=== PATIENT | male | born 1975 | race American Indian/Alaskan Native ===

== ENCOUNTER 2021-06-21 20:33 | Emergency (ER) | payer BC ==
[2021-06-21 21:50] VITALS: BP 133/85
[2021-06-22 00:09] LABS: Bacteria,Urine 1+ /HPF (Negative); Bilirubin,Urine NEG (Negative); Blood,Urine NEG (Negative); Color,Urine Yellow (Yellow); Protein,Urine <15 mg/dL mg/dL (Negative); Urobilinogen,Urine < 2.0 mg/dL (<2.0)
[2021-06-22] MEDS ORDERED: LIDOCAINE-MPF (1%) 10 MG/1 ML VIAL 5 ML INFILTRATI ONE (03:14)
[2021-06-22] MEDS ORDERED: KETOROLAC 30 MG/1 ML INJ IM ONE (03:14)
[2021-06-22 04:34] LABS: Basophils % (Auto) 0.3 % (0.0-1.8); Eosinophils # (Auto) 0.2 K/mm3 (0.0-0.4); Eosinophils % (Auto) 1.9 % (0.0-4.3); Hematocrit 40.4 % (35.5-45.6); Lymphocytes # (Auto) 1.5 K/mm3 (1.2-5.4); Lymphocytes % (Auto) 15.6 % (13.4-35.0); Mean Corpuscular HGB Conc 35 % (32-34); Mean Corpuscular Volume 93 fl (84-94); Monocytes # (Auto) 1.1 K/mm3 (0.0-0.8); Monocytes % (Auto) 11.3 % (0.0-7.3); Platelet Count 242 K/mm3 (140-440); Red Blood Count 4.34 M/mm3 (3.65-5.03); Red Cell Distribution Width 13.2 % (13.2-15.2)
[2021-06-22 04:50] LABS: Alanine Aminotransferase 23 units/L (7-56); Albumin 4.2 g/dL (3.9-5); BUN/Creatinine Ratio 8; Blood Urea Nitrogen 7 mg/dL (9-20); Calcium 9.1 mg/dL (8.4-10.2); Hemolysis Index 8
--- NOTE | 2021-06-22 06:05 | Ultrasound Report ---
Testicular ultrasound INDICATION: Right testicular pain FINDINGS: Right testicle measures 4.2 x 3.4 x 3.3 cm. Normal echogenicity with normal flow arterial a nd venous. Left testicle measures 3.0 x 2.0 x 2.7 cm with normal color Doppler flow. There is fluid s urrounding the right testicle. Bilateral testicles mild heterogeneous IMPRESSION: Fluid surrounding the right testicle. Arterial and venous flow noted to bilateral testicles. No well- defined mass Signer Name: Bakari Pat MD Signed: 06/22/2021 6:01 AM Workstation Name: [id number]
--- NOTE | 2021-06-22 06:19 | Emergency Department Report ---
ED Male HPI - General Chief complaint: Abdominal Pain Stated complaint: LOWER FLANK PAIN/SCROTUM PAIN Source: patient Mode of arrival: Ambulatory Limitations: No Limitations - History of Present Illness Initial comments: Patient is a 45-year-old -[place] male with history of asthma presents to the ED with complaint of acute onset persistent right inguinal pain that r adiates to the right testicle for the last 3 days. Patient also complains of urinary frequency and urgency and dysuria. Patient states that he experiences similar symptoms 1 month ago and was treated at another hospital for acute urinary tract infection after extensive work-up. Patient admits to being sexually active and does not observe any safe sexual practices. Patient denies fever, chills, nausea and vomiting, traumatic injury or fall, heavy lifting, hematuria, back pain, abdominal pain, penile discharge or chest pain or shortness of breath. MD Complaint: testicle pain (right), testicle swelling (right), groin pain (right inguinal pain), other (dysuria) -: Sudden, days(s) (3) Location: right testicle, right inguinal region Radiation: other (right inguinal and right testicular ) Severity: severe Severity scale (0 -10): 7 Quality: aching, sharp Consistency: constant Improves with: none Worsens with: palpation, movement denies other symptoms. denies: discharge, swelling, mass, rash, urinary retention, blood in urine, dysuria, fever, nausea/vomiting, incontinence, other - Related Data Sexually active: Yes Previous Rx's Medication Instructions Recorded Last Taken Type Cyclobenzaprine [Flexeril] 10 mg PO QHS PRN #20 tablet 07/25/18 Unknown Rx Ibuprofen [Motrin] 800 mg PO Q8HR #30 tablet 07/25/18 Unknown Rx Cyclobenzaprine [Flexeril] 10 mg PO BID PRN #20 tablet 08/06/18 Unknown Rx Naproxen [Naprosyn] 500 mg PO BID PRN #30 tablet 08/06/18 Unknown Rx cephALEXin [Keflex] 500 mg PO BID #20 cap 08/06/18 Unknown Rx Doxycycline Hyclate 100 mg PO Q12H #28 capsule 06/22/21 Unknown Rx Ibuprofen [Motrin] 800 mg PO Q8HR PRN #30 tablet 06/22/21 Unknown Rx Allergies Allergy/AdvReac Type Severity Reaction Status Date / Time No Known Allergies Allergy Unverified 07/25/18 16:19 ED Review of Systems ROS: Stated complaint: LOWER FLANK PAIN/SCROTUM PAIN Other details as noted in HPI Constitutional: denies: chills, fever Eyes: denies: eye pain, eye discharge, vision change ENT: denies: ear pain, throat pain Respiratory: denies: cough, shortness of breath, wheezing Cardiovascular: denies: chest pain, palpitations Endocrine: no symptoms reported Gastrointestinal: denies: abdominal pain, nausea, diarrhea Genitourinary: urgency, dysuria, frequency, testicular pain (Right testicular pain), other (Right inguinal pain) Musculoskeletal: denies: back pain, joint swelling, arthralgia Skin: denies: rash, lesions Neurological: denies: headache, weakness, paresthesias Psychiatric: denies: anxiety, depression Hematological/Lymphatic: denies: easy bleeding, easy bruising ED Past Medical Hx - Past Medical History Previous Medical History?: Yes Hx Asthma: Yes - Surgical History Past Surgical History?: No - Social History Smoking Status: Current Every Day Smoker Substance Use Type: None - Medications Home Medications: Home Medications Medication Instructions Recorded Confirmed Last Taken Type Cyclobenzaprine [Flexeril] 10 mg PO QHS PRN #20 tablet 07/25/18 Unknown Rx Ibuprofen [Motrin] 800 mg PO Q8HR #30 tablet 07/25/18 Unknown Rx Cyclobenzaprine [Flexeril] 10 mg PO BID PRN #20 tablet 08/06/18 Unknown Rx Naproxen [Naprosyn] 500 mg PO BID PRN #30 tablet 08/06/18 Unknown Rx cephALEXin [Keflex] 500 mg PO BID #20 cap 08/06/18 Unknown Rx Doxycycline Hyclate 100 mg PO Q12H #28 capsule 06/22/21 Unknown Rx Ibuprofen [Motrin] 800 mg PO Q8HR PRN #30 tablet 06/22/21 Unknown Rx ED Physical Exam - General Limitations: No Limitations General appearance: alert, in no apparent distress - Head Head exam: Present: atraumatic, normocephalic, normal inspection - Eye Eye exam: Present: normal appearance, PERRL, EOMI Pupils: Present: normal accommodation - ENT ENT exam: Present: normal exam, normal orophraynx, mucous membranes moist, TM's normal bilaterally, normal external ear exam - Neck Neck exam: Present: normal inspection, full ROM - Respiratory Respiratory exam: Present: normal lung sounds bilaterally. Absent: respiratory distress, wheezes, rales, stridor, chest wall tenderness, accessory muscle use, decreased breath sounds - Cardiovascular Cardiovascular Exam: Present: normal rhythm, bradycardia, normal heart sounds. Absent: systolic murmur, diastolic murmur, rubs, gallop - GI/Abdominal GI/Abdominal exam: Present: soft, normal bowel sounds. 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 Absent: tenderness, CVA tenderness (R), CVA tenderness (L), muscle spasm, paraspinal tenderness, v ertebral tenderness - Neurological Exam Neurological exam: Present: alert, oriented X3, CN II-XII intact, normal gait, reflexes normal - Psychiatric Psychiatric exam: Present: normal affect, normal mood - Skin Skin exam: Present: warm, dry, intact, normal color. Absent: rash ED Course Vital Signs 06/21/21 21:49 Temperature 98.2 F Pulse Rate 58 L Respiratory 18 Rate Blood Pressure 133/85 [Right] O2 Sat by Pulse 98 Oximetry ED Medical Decision Making - Lab Data Result diagrams: 06/22/21 04:00 06/22/21 04:00 - Radiology Data Radiology results: report reviewed, image reviewed [address] [address] Ultrasound Report Signed Patient: JOVITA GUERRA MR#: [id number] : 1975 Acct:[id number] Age/Sex: 45 / M ADM Date: 06/21/21 Loc: ED Attending Dr: Ordering Physician: ABRAN BROWN Date of Service: 06/22/21 Procedure(s): US testicular doppler comp Accession Number(s): [id number] cc: ABRAN BROWN Testicular ultrasound INDICATION: Right testicular pain FINDINGS: Right testicle measures 4.2 x 3.4 x 3.3 cm. Normal echogenicity with normal flow arterial and venous. Left testicle measures 3.0 x 2.0 x 2.7 cm with normal color Doppler flow. There is fluid surrounding the right testicle. Bilateral testicles mild heterogeneous IMPRESSION: Fluid surrounding the right testicle. Arterial and venous flow noted to bilateral testicles. No well-defined mass Signer Name: Bakari Pat MD Signed: 06/22/2021 6:01 AM Workstation Name: [id number] Transcribed By: SHERRI Dictated By: LIZ PAT MD Electronically Authenticated By: LIZ PAT MD Signed Date/Time: 06/22/21600 DD/ 9 TD/TT: - Medical Decision Making This is a 45-year-old -[place] male with history of asthma presents to the ED with complaint of acute onset persistent right inguinal pain that radiates to the right testicle for the last 3 days. Patient also complains of urinary frequency and urgency and dysuria. Patient states that he experiences similar symptoms 1 month ago and was treated at another hospital for acute urinary tract infection after extensive work-up. Patient admits to being sexually active and does not observe any safe sexual practices. In the ED, patient is alert and oriented x3 and is not in any distress. Lab test results were reviewed and are all nonactionable except for urinalysis that showed urinary tract infection. Testicular ultrasound showed fluid surrounding the right testicle. Arterial and venous flow noted to bilateral testicles. No well- defined mass. Patient was treated for pain in the ED and also given Rocephin 1 g intramuscular injection for UTI and empirically for suspected gonorrhea. On reevaluation, patient's pain is well controlled medication. Patient was discharged home on antibiotics doxycycline 100 mg every 12 hours for 14 days, and also given prescription for pain medication. Patient was advised to follow- up with his primary care physician or [facility] department for further evaluation especially further STD testing including HIV and syphilis. Patient was also counseled on the importance of observing safe sexual practices. Patient was also advised to ensure that his sexual partner also gets evaluated for suspected STD. Patient was also advised to return to the ED immediately if symptoms get worse. - Differential Diagnosis Testicular torsion; epididymitis; UTI; gonorrhea; chlamydia; kidney stone; Critical care attestation.: If time is entered above; I have spent that time in minutes in the direct care of this critically ill patient, excluding procedure time. ED Disposition Clinical Impression: Right testicular pain, Acute urinary tract infection, Concern about STD in male without diagnosis Disposition: 01 HOME / SELF CARE / HOMELESS Is pt being admited?: No Does the pt Need Aspirin: No Condition: Stable Instructions: Urinary Tract Infection, Adult, [id number], Testicular Self- Exam, [id number], Gonorrhea, Preventing Sexually Transmitted Infections, Adult Additional Instructions: All lab test results were reviewed and are all nonactionable except for a urinalysis that showed significant infection. Testicular ultrasound was unremarkable with no evidence of testicular torsion or epididymitis. Therefore take medications with food as advised, drink plenty of fluids and follow-up with your primary care physician or at [facility] for further evaluation and especially HIV testing, syphilis testing and other STDs. Observe safe sexual practices and ensure that your sexual partner also gets evaluated and tested. Return to the ED immediately if symptoms get worse. Prescriptions: Doxycycline Hyclate 100 mg PO Q12H #28 capsule Ibuprofen [Motrin] 800 mg PO Q8HR PRN #30 tablet PRN Reason: Pain , Severe (7-10) Referrals: [facility] Depart [Outside] - 3-5 Days Time of Disposition: 06:23 Print Language: CROATIAN
== END 2021-06-22 06:47 | disposition home or self-care (01) ==
LOC: ED 20:33
DX: N39.0 Urinary tract infection, site not specified (principal); N50.811 Right testicular pain; Z20.2 Contact with and (suspected) exposure to infections with a predominantly sexual mode of transmission; J45.909 Unspecified asthma, uncomplicated; F17.200 Nicotine dependence, unspecified, uncomplicated
CPT/HCPCS: 36415; 80053; 81001; 85025; 87086; 93975; 96372; 99284; J0696; J1885